=== PATIENT | male | born 1970 | race Caucasian/White ===

== ENCOUNTER 2018-06-18 10:58 | Emergency (ER) | payer OTHER, BC ==
[2018-06-18 11:25] VITALS: BP 116/73; PULSE 65; TEMP 98.4; BMI 25.0
[2018-06-18] MEDS ORDERED: KETOROLAC TROMETHAMINE 60 MG/2 ML VIAL IM ONE (11:43)
[2018-06-18] MEDS ORDERED: KETOROLAC TROMETHAMINE 60 MG/2 ML VIAL ONE (11:48)
--- NOTE | 2018-06-18 11:52 | PDOC ---
History of Present Illness - General Chief Complaint: Pain Stated Complaint: lower back pain Time Seen by Provider: 06/18/18 11:18 - History of Present Illness Initial Comments: 06/18/18 12:12 Chief complaint: Low back pain History of present illness: Patient was carrying of LOC several days ago at work , felt a "twinge" in his right lower back at the time. Later in the day began to experience pain and stiffness over the right sacrum. Saw chiropractor yesterday but the pain continues. Review of systems: Denies radiation of pain to the lower extremities, numbness tingling or weakness of the lower extremities, incontinence or retention of urine or stool, difficulty ambulating. Pain is better lying down and standing, worse with sitting. 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 Maintained on aspirin and the lamotrigine without recent symptoms. Taking Naprosyn for his back pain. Social/family history reviewed and noncontributory Physical exam: Alert and oriented well-developed well-nourished no acute distress, to Afebrile, vital signs normal HEENT clear Neck supple without bruit mass or nodes Chest clear CV regular without murmur rub or gallop Abdomen benign LS spine: There is mild loss of the normal lumbar lordosis. There is no point tenderness, deformity, or inflammation over the spinal vertebrae. There is no tenderness, although the patient indicates pain over the right sacrum. Straight leg raising is negative. No distal sensory or motor deficits. Gait stable and unimpaired Impression: Low back strain, no symptoms in the lower extremities, probably mild muscle or facet joint injury Plan: Symptomatic treatment, rest, follow-up with rfid specialist if no improvement. Medication as directed. Naprosyn was changed to diclofenac. Despite the patient's prior history, he has been tolerating Naprosyn without any problem. However, he was told that Tylenol will be the safest medication and to try that first, saving the diclofenac, Naprosyn, or Motrin for severe symptoms not responding to other therapy. He understands and agrees, fully ambulatory and in no significant pain or other distress upon discharge to follow -up as needed. Past History - Past Medical History Allergies/Adverse Reactions: Allergies Allergy/AdvReac Type Severity Reaction Status Date / Time No Known Allergies Allergy Verified 06/18/18 11:00 Home Medications: Ambulatory Orders Aspirin Coated [Ecotrin -] 325 mg PO DAILY 04/10/11 Metoprolol Tartrate [Lopressor -] 25 mg PO DAILY 04/10/11 Lamotrigine [Lamictal] 150 mg PO BID 08/25/14 Cyclobenzaprine HCl [Flexeril] 10 mg PO TID #10 tablet 06/18/18 Diclofenac Potassium 50 mg PO QID PRN #20 tablet 06/18/18 Lisdexamfetamine Dimesylate [Vyvanse] 20 mg PO DAILY 06/18/18 Cardiac Disorders: Yes (aortic arch aneuyrism) COPD: No - Surgical History Abdominal Surgery: Yes ([facility] 03/26/11) - Suicide/Smoking/Psychosocial Hx Smoking Status: No Smoking History: Never smoked Have you smoked in the past 12 months: No Number of Cigarettes Smoked Daily: 0 Information on smoking cessation initiated: No Hx Alcohol Use: No Drug/Substance Use Hx: No Substance Use Type: None Hx Substance Use Treatment: No *Physical Exam - Vital Signs Last Vital Signs Temp Pulse Resp BP Pulse Ox 98.4 F 65 20 116/73 98 06/18/18 10:59 06/18/18 10:59 06/18/18 10:59 06/18/18 10:59 06/18/18 10:59 *DC/Admit/Observation/Transfer Diagnosis at time of Disposition: Low back strain Qualifiers: Encounter type: initial encounter Qualified Code(s): S39.012A - Strain of muscle, fascia and tendon of lower back, initial encounter - Discharge Dispostion Disposition: HOME Condition at time of disposition: Improved Decision to Admit order: No - Prescriptions Prescriptions: Cyclobenzaprine HCl [Flexeril] 10 mg PO TID #10 tablet Diclofenac Potassium 50 mg PO QID PRN #20 tablet PRN Reason: Pain - Referrals Referrals: Magan Almeida MD [Staff Physician] - 1 week - Patient Instructions Printed Discharge Instructions: DI for Low Back Pain Additional Instructions: Rest, heat, may alternate with ice massage, avoid the sitting position. Continue normal activity, standing and walking a limited amount. Medication as directed. For pain, start with acetaminophen. This is the safest given your other medications. If more pain relief is required use medication as prescribed. See Back Specialist as directed if no improvement or if further symptoms develop. - Post Discharge Activity Forms/Work/School Notes: Back to Work
== END 2018-06-18 12:19 | disposition home or self-care (01) ==
LOC: FER 10:58
PROC: 3E0233Z Introduction of Anti-inflammatory into Muscle, Percutaneous Approach (ICD-10-PCS; principal; 2018-06-18)
DX: S39.012A Strain of muscle, fascia and tendon of lower back, initial encounter (principal); X58.XXXA Exposure to other specified factors, initial encounter; Y93.89 Activity, other specified; Y92.89 Other specified places as the place of occurrence of the external cause; Y99.0 Civilian activity done for income or pay
CPT/HCPCS: 99282-25

== ENCOUNTER 2023-11-22 05:16 | Day surgery (SDC) | payer BC ==
[2023-11-15 16:12] VITALS: BMI 25.2
[2023-11-22 10:52] VITALS: TEMP 98.3
[2023-11-22 11:20] VITALS: BP 104/59; PULSE 58; RESP 17
== END 2023-11-22 12:00 | disposition home or self-care (01) ==
LOC: JASU-ENDO 05:16
PROVIDERS: ATTEND Internal Medicine Gastroenterology
PROC: 0DBH8ZX Excision of Cecum, Via Natural or Artificial Opening Endoscopic, Diagnostic (ICD-10-PCS; principal; 2023-11-22 11:00)
DX: Z12.11 Encounter for screening for malignant neoplasm of colon (principal); D12.0 Benign neoplasm of cecum; K64.8 Other hemorrhoids; K57.30 Diverticulosis of large intestine without perforation or abscess without bleeding
CPT/HCPCS: 88305-TC